=== PATIENT | male | born 1945 | race Caucasian/White ===

== ENCOUNTER 2017-12-16 07:24 | Day surgery (SDC) | payer MEDICARE ==
[2017-12-14 10:35] VITALS: BMI 26.9
[2017-12-16] MEDS ORDERED: DiphenhydrAMINE 50 mg/ml Inj ONE (08:06)
[2017-12-16] MEDS ORDERED: Iodixanol 320 MG/ML 100 ML BOTTLE IV ONE (08:49)
[2017-12-16] MEDS ORDERED: Midazolam 2 MG/2 ML VIAL ONE (08:50)
[2017-12-16 12:59] VITALS: RESP 18; TEMP 98.3
[2017-12-16 14:24] VITALS: BP 138/52; PULSE 72
--- NOTE | 2017-12-18 11:21 | CARDCATH ---
PROCEDURE DATE: 12/16/2017. CLINICAL INDICATIONS: 1. Abnormal stress test. 2. History of coronary artery disease, status post CABG x3. 3. Hypertension. 4. Hyperlipidemia. 5. Diabetes. PROCEDURES: 1. Left heart catheterization. 2. Coronary angiogram. 3. Left internal mammary artery graft angiogram. 4. Saphenous vein graft angiogram. 5. Aortic root angiogram. PERFORMING PHYSICIAN: Cosme Saldaña MD. PROCEDURE: After informed consent, the patient was prepped and draped in the usual sterile fashion. A 2% lidocaine was given in the right groin for local anesthesia. Using micropuncture technique, a 6-Japanese sheath was introduced into the right common femoral artery. A 6-Japanese JL4 diagnostic catheter engaged into left main coronary artery. Contrast injected and left coronary angiogram was done. Then a 6-Japanese JR4 catheter crossed into the left ventricle across the aortic valve. LV end-diastolic pressure was measured. Contrast injected and LV angiogram was done. Then the catheter was pulled back and gradient across the aortic valve was measured. Then the same catheter was engaged into the right coronary artery. Contrast injected and right coronary angiogram was done. Using JR4, saphenous vein graft was engaged and graft angiogram was done. A 6-Japanese IM catheter engaged into left internal mammary graft. Contrast injected and left internal mammary graft angiogram was done. Then the catheter was pulled back. The patient tolerated the procedure well. FINDINGS: 1. Distal left main coronary artery has a calcific 80% stenosis. 2. Proximal LAD is 100% occluded. 3. Ostial circumflex has an 80% to 85% concentric calcific stenosis. 4. Right coronary artery is dominant and patent. 5. Saphenous vein graft to the left coronary system is totally occluded. 6. Left internal mammary graft to LAD is patent. 7. LV ejection fraction is approximately 60%. Mild inferior wall hypokinesis. EDP is 20. No gradient across the aortic valve. 8. Aortic root angiogram demonstrates no further grafts. Aortic root is of normal size. No aneurysm or dissection noted. IMPRESSION: 1. Coronary artery disease described as above. 2. Saphenous vein grafts to left coronary system are occluded. 3. Aggressive medical management for 2 to 3 months. If the patient is still symptomatic, we will consider intervening left main and left circumflex coronary system. Cosme Saldaña MD
== END 2017-12-19 14:10 | disposition home or self-care (01) ==
LOC: C.CATHLAB 07:24
PROVIDERS: ATTEND Internal Medicine Cardiovascular Disease
DX: I25.810 Atherosclerosis of coronary artery bypass graft(s) without angina pectoris (principal); I10 Essential (primary) hypertension; E11.9 Type 2 diabetes mellitus without complications; Z95.1 Presence of aortocoronary bypass graft; E78.5 Hyperlipidemia, unspecified
CPT/HCPCS: 93459; 99152; 99153; C1758; C1760; C1769; C1887; C1893; J1200; J1644; J2250; J2930; J3010; Q9967